=== PATIENT | female | born 1930 | race Caucasian/White ===

== ENCOUNTER 2016-12-11 15:22 | Emergency (ER) | payer OTHER, MEDICAID ==
[~2016-12-11] VITALS: Ht 152.4 cm; Wt 70.3 kg
[2016-12-11 15:30] VITALS: BP 154/84
[2016-12-11] MEDS ORDERED: ceFAZolin 1,000 MG VIAL IM ONE (16:35)
[2016-12-11] MEDS ORDERED: BACITRACIN OINT 500 UNITS/GM PKT TP ONE (17:11)
[2016-12-11 17:19] VITALS: BP 147/81
[2016-12-12] MEDS ORDERED: BACITRACIN ZINC/POLYMYXIN B OINT 30 GM TUBE TP SCH (09:00)
== END 2016-12-11 17:19 | disposition home or self-care (01) ==
LOC: MED 15:22
DX: S80.862A Insect bite (nonvenomous), left lower leg, initial encounter (principal); L03.116 Cellulitis of left lower limb; E11.9 Type 2 diabetes mellitus without complications; W57.XXXA Bitten or stung by nonvenomous insect and other nonvenomous arthropods, initial encounter; Y93.89 Activity, other specified; Y92.89 Other specified places as the place of occurrence of the external cause; Y99.8 Other external cause status
CPT/HCPCS: 82948; 90471; 90715; 96372; 99284; J0690

== ENCOUNTER 2016-12-17 11:56 | Inpatient (IN) | payer OTHER, MEDICAID ==
[~2016-12-17] VITALS: Ht 152.4 cm; Wt 72.1 kg
[2016-12-17 12:17] VITALS: BP 145/73
[2016-12-17 14:26] LABS: BASOPHILS # (AUTO) 0.2 K/uL (0.00-0.22); EOSINOPHILS # (AUTO) 0.1 K/uL (0-0.4); LYMPHOCYTES # (AUTO) 1.1 K/uL (2.5-16.5); MEAN CORPUSCULAR HEMOGLOBIN 29 pg (27-31); MEAN CORPUSCULAR HGB CONC 33 g/dL (33-37); MEAN CORPUSCULAR VOLUME 88 fL (80-94); MONOCYTES # (AUTO) 0.5 K/uL (0.8-1.0); NEUTROPHILS # (AUTO) 3.7 K/uL (1.8-7.7); PLATELET COUNT (AUTO) 258 K/uL (140-450); RED BLOOD CELL COUNT(AUTO) 4.77 MIL/uL (4.20-5.40); RED CELL DISTRIBUTION WIDTH 13.6 % (11.6-13.7); WHITE BLOOD COUNT (AUTO) 5.6 K/uL (4.8-10.8)
[2016-12-17 14:28] LABS: ANION GAP 16.2 (8-16); CHLORIDE 102 mmol/L (98-107); CREATININE 0.7 mg/dL (0.6-1.3); GLUCOSE 123 mg/dL (74-106); POTASSIUM 4.2 mmol/L (3.5-5.1); SODIUM SERUM 140 mmol/L (136-145); UREA NITROGEN, BLOOD 16 mg/dL (7-18)
[2016-12-17 14:28] LABS: APPEARANCE,URINE CLEAR (CLEAR); BILIRUBIN,URINE NEGATIVE (NEGATIVE); BLOOD, URINE NEGATIVE (NEGATIVE); COLOR,URINE YELLOW (YELLOW); LEUKOCYTE ESTERASE ,URINE NEGATIVE (NEGATIVE); NITRITE, URINE NEGATIVE (NEGATIVE); UGLUCOSE NEGATIVE (NEGATIVE)
[2016-12-17 14:35] LABS: ALBUMIN 4.2 g/dL (3.4-5.0); ASPARTATE AMINOTRANSFERASE 24 U/L (15-37); TOTAL BILIRUBIN 0.5 mg/dL (0.0-1.0)
[2016-12-17] MEDS ORDERED: BACTO TP (16:24)
[2016-12-17] MEDS ORDERED: SULF1TAB12 PO (16:24)
[2016-12-17] MEDS ORDERED: CEPH250C16 PO (16:24)
[2016-12-17 16:45] VITALS: BP 131/70
[2016-12-17] MEDS ORDERED: ACETAMINOPHEN 325 MG TAB PO PRN (17:20)
[2016-12-17] MEDS ORDERED: cefTRIAXone 1,000 MG VIAL ONE (17:54)
[2016-12-17] MEDS: NACL 0.9% 1,000 ML IV SCH (17:59)
[2016-12-17] MEDS: BLOOD GLUCOSE MONITORING 1 DEV DEV FS SCH ×2 (21:00→22:15)
[2016-12-18 00:40] VITALS: BP 126/72
[2016-12-18 06:20] LABS: BASOPHILS # (AUTO) 0.1 K/uL (0.00-0.22); BASOPHILS % (AUTO) 2.6 % (0.0-2.0); EOSINOPHILS % (AUTO) 1.1 % (0.0-4.0); HEMATOCRIT 38.4 % (36-48); HEMOGLOBIN 12.9 g/dL (12.0-16.0); LYMPHOCYTES # (AUTO) 1.2 K/uL (2.5-16.5); LYMPHOCYTES % (AUTO) 28.2 % (20.5-51.1); MEAN CORPUSCULAR HEMOGLOBIN 29 pg (27-31); MEAN CORPUSCULAR HGB CONC 34 g/dL (33-37); MEAN CORPUSCULAR VOLUME 87 fL (80-94); MONOCYTES # (AUTO) 0.5 K/uL (0.8-1.0); MONOCYTES % (AUTO) 11.4 % (1.7-9.3); NEUTROPHILS # (AUTO) 2.3 K/uL (1.8-7.7); NEUTROPHILS % (AUTO) 56.7 % (42.2-75.2); PLATELET COUNT (AUTO) 214 K/uL (140-450); RED CELL DISTRIBUTION WIDTH 13.1 % (11.6-13.7); WHITE BLOOD COUNT (AUTO) 4.2 K/uL (4.8-10.8)
[2016-12-18] MEDS: BLOOD GLUCOSE MONITORING 1 DEV DEV FS SCH ×4 (06:24→20:33)
[2016-12-18 06:49] LABS: ANION GAP 13.8 (8-16); CARBON DIOXIDE 24.3 mmol/L (21-32); CHLORIDE 103 mmol/L (98-107); CREATININE 0.7 mg/dL (0.6-1.3); GLUCOSE 141 mg/dL (74-106); POTASSIUM 4.1 mmol/L (3.5-5.1); SODIUM SERUM 137 mmol/L (136-145); UREA NITROGEN, BLOOD 16 mg/dL (7-18)
[2016-12-18 08:00] VITALS: BP 119/48
[2016-12-18] MEDS: NACL 0.9% 1,000 ML IV SCH ×2 (09:27→20:32)
[2016-12-18] MEDS: ENOXAPARIN 30 MG/0.3 ML SYR SUBQ SCH (09:30)
[2016-12-18] MEDS: CLINDAMYCIN 300 MG in DEXTROSE 5% 50 ML IV SCH ×2 (11:46→17:23)
[2016-12-18] MEDS: INSULIN LISPRO SLIDING SCALE 100 UNITS/ML VIAL SUBQ PRN ×2 (12:36→20:34)
[2016-12-18 16:00] VITALS: BP 121/51
[2016-12-19] MEDS: CLINDAMYCIN 300 MG in DEXTROSE 5% 50 ML IV SCH ×3 (00:23→12:20)
[2016-12-19 00:45] VITALS: BP 128/72
[2016-12-19] MEDS: BLOOD GLUCOSE MONITORING 1 DEV DEV FS SCH ×2 (05:04→12:19)
[2016-12-19] MEDS: NACL 0.9% 1,000 ML IV SCH (05:34)
[2016-12-19 08:00] VITALS: BP 142/68
[2016-12-19] MEDS: ENOXAPARIN 30 MG/0.3 ML SYR SUBQ SCH (09:38)
[2016-12-19] MEDS ORDERED: NACL 0.9% IRR 250 ML BOTTLE IR SCH (13:00)
== END 2016-12-19 15:05 | disposition home or self-care (01) | DRG 603 ==
LOC: MED 11:56 → MTU 15:44
PROVIDERS: ADMIT Internal Medicine Pulmonary Disease; ATTEND Internal Medicine Pulmonary Disease
DX: L03.116 Cellulitis of left lower limb (principal); E11.622 Type 2 diabetes mellitus with other skin ulcer; E11.65 Type 2 diabetes mellitus with hyperglycemia; L97.929 Non-pressure chronic ulcer of unspecified part of left lower leg with unspecified severity; I10 Essential (primary) hypertension; Z79.899 Other long term (current) drug therapy
CPT/HCPCS: 36415; 71010; 80048; 80053; 81003; 82948; 83605; 85025; 87040; 87081; 93005; 99285; J0696; J1650; J3490; J7030; J7060; Q0092